=== PATIENT | female | born 2000 | race Two or more races ===

== ENCOUNTER 2020-09-05 03:14 | Emergency (ER) | payer OTHER ==
[~2020-09-05] VITALS: Ht 165.1 cm; Wt 77.6 kg
== END 2020-09-05 09:30 | disposition home or self-care (01) ==
LOC: ER 03:14
DX: O26.892 Other specified pregnancy related conditions, second trimester (principal); R05 Cough; O98.512 Other viral diseases complicating pregnancy, second trimester; U07.1 COVID-19; Z3A.27 27 weeks gestation of pregnancy

== ENCOUNTER 2020-11-06 14:00 | Inpatient (IN) | payer OTHER ==
[~2020-11-06] VITALS: Ht 162.6 cm; Wt 85.7 kg
[2020-11-28] MEDS ORDERED: PRENATAL CAPLE1 EAC1 PO (18:15)
[2020-11-28] MEDS ORDERED: PEPCID AC20 MG PO (18:15)
== END 2020-12-01 14:28 | disposition home or self-care (01) | DRG 788 ==
LOC: SURG-SUITE 11-28 17:41 → LDR 11-28 17:41 → O/R 11-28 21:27 → OB/GYN 11-28 22:28 → SURG-SUITE 11-29 00:38 → OB/GYN 12-03 14:00
PROVIDERS: ADMIT Obstetrics & Gynecology Maternal & Fetal Medicine; ATTEND Obstetrics & Gynecology Maternal & Fetal Medicine
PROC: 4A1HXFZ Monitoring of Products of Conception, Cardiac Rhythm, External Approach (ICD-10-PCS; 2020-11-28)
PROC: 10D00Z1 Extraction of Products of Conception, Low, Open Approach (ICD-10-PCS; principal; 2020-11-28 21:00)
DX: O82 Encounter for cesarean delivery without indication (principal); Z3A.39 39 weeks gestation of pregnancy; Z37.0 Single live birth; Z20.822 Contact with and (suspected) exposure to COVID-19

== ENCOUNTER 2020-11-22 11:38 | Outpatient (CLI) | payer OTHER | END 2020-11-22 12:20 | disposition home or self-care (01) | LOC: NST 11:38 | PROVIDERS: ATTEND Obstetrics & Gynecology Maternal & Fetal Medicine | DX: Z34.83 Encounter for supervision of other normal pregnancy, third trimester (principal) ==